=== PATIENT | female | born 1965 | race Caucasian/White ===

== ENCOUNTER 2019-08-04 09:06 | Emergency (ER) | payer OTHER ==
[~2019-08-04] VITALS: Ht 160 cm; Wt 65.3 kg
[2019-08-04 09:16] VITALS: BP 127/68; Ht 160 cm; Wt 65.3 kg
== END 2019-08-04 10:08 | disposition home or self-care (01) ==
LOC: ED 09:06
DX: J06.9 Acute upper respiratory infection, unspecified (principal); J45.909 Unspecified asthma, uncomplicated; Z90.710 Acquired absence of both cervix and uterus; Z88.5 Allergy status to narcotic agent